=== PATIENT | female | born 1935 | race Caucasian/White ===

== ENCOUNTER → 2016-04-14 | Outpatient (CLI) | payer MEDICARE, BC ==
--- NOTE | 2016-04-17 13:25 | MY ---
EXAMINATION: Bilateral digital mammography utilizing CAD. HISTORY: Screening exam. Comparison is made to previous studies dated 12/22/2011, 07/18/2010. FINDINGS: Bilateral heterogeneously dense breast tissue. There are a few scattered stable calcific ations bilaterally. No suspicious calcifications, masses or architectural distortions. No patholog ic appearing lymph nodes, no abnormal skin thickening or nipple inversion. CAD highlighted regions appear normal at this time. IMPRESSION: BI-RADS category I - negative mammogram. Continued screening according to ACR-ACS gu idelines suggested. THE FALSE-NEGATIVE RATE OF MAMMOGRAM IS APPROXIMATELY 10%. MANAGEMENT OF A PALPABLE ABNORMALITY MUST BE BASED UPON CLINICAL GROUNDS. SENSITIVITY FOR DETECTION OF ABNORMALITIES IN DENSE BREASTS IS LOW. NOTE: A letter will be sent to the patient regarding findings. [facility] -- JONATHAN Dinh [phone] - FAX [phone]
== END ==
LOC: MW.MAM 11:13
PROVIDERS: ATTEND Nurse Practitioner Women's Health
DX: Z12.31 Encounter for screening mammogram for malignant neoplasm of breast (principal)
CPT/HCPCS: G0202; G0202-26

== ENCOUNTER → 2016-06-27 | Outpatient (CLI) | payer MEDICARE, BC | LOC: MW.CHOBGYN 15:30 | PROVIDERS: ATTEND Nurse Practitioner Women's Health | DX: N90.89 Other specified noninflammatory disorders of vulva and perineum (principal); N76.0 Acute vaginitis; B96.89 Other specified bacterial agents as the cause of diseases classified elsewhere | CPT/HCPCS: 87480; 87510; 87660; G0463 ==